=== PATIENT | male | born 1960 | race Caucasian/White ===

== ENCOUNTER 2018-12-07 05:24 | Emergency (ER) | payer BC ==
--- OUTSIDE RECORDS SUMMARY | 2018-12-07 06:02 | XMS REPORT | Continuity of Care Document ---
:1960 External Reference #:[id number] Author Name Marc Ortega MD Address [address] [place] [address] Care Team Providers Name Role Phone Marc Ball MD - Family Care Team Information Communication Center Coordinator [phone] Medicine Problems Description No Information Available Social History Type Date Description Comments Sex Unknown Tobacco Use Start: Unknown Nonsmoker ETOH Use Occasional Tobacco Use Start: Unknown Nonsmoker Smoking Status Reviewed: 11/18/18 Nonsmoker Allergies, Adverse Reactions, Alerts Active Allergies Reaction Severity Comments Date NKDA 10/23/2015 Lactose loose stool 08/30/2018 Medications Active Medications SIG Qnty Indications Ordering Provider Date Temazepam 1 -2 at bedtime 60caps Marc Christie 09/13/2018 15mg Capsules as needed for MD Shannon sleep Claritin use 1 by mouth Unknown 10mg Capsules q.d Risperidone 1 tab every day 30tabs Marc Christie 1mg Tablets at bedtime MD Shannon Immunizations CPT Code Status Date Vaccine Lot # [id number] Given 05/31/2016 Tdap Tetanus, W Pertussis [id number] Vital Signs Date Vital Result Comment 11/18/2018 12:49pm BP Systolic 110 mmHg BP Diastolic 80 mmHg Heart Rate 68 /min Body Temperature 97.0 F Respiratory Rate 16 /min Height 72 inches 6'0" Weight 208.00 lb BMI (Body Mass Index) 28.2 kg/m2 09/13/2018 4:43pm BP Systolic 100 mmHg BP Diastolic 72 mmHg Heart Rate 72 /min Body Temperature 97.9 F Respiratory Rate 12 /min Height 72.6 inches 6'0.60" Weight 210.00 lb BMI (Body Mass Index) 28.0 kg/m2 Results Description No Information Available Procedures Date Code Description Status 01/26/2017 [id number] Colonoscopy Completed Medical Devices Description No Information Available Encounters Type Date Location Provider Dx Diagnosis Office Visit 09/13/2018 [facility] Office Marc Christie F31.0 Bipolar disorder, 4:30p MD Shannon current episode hypomanic Office Visit 08/30/2018 [facility] Office Marc Pratik F31.0 Bipolar disorder, 3:00p MD Shannon current episode hypomanic Assessments Date Code Description Provider 11/18/2018 Z00.00 Encounter for general adult medical Marc Ortega MD examination without abnormal findings 11/18/2018 F31.0 Bipolar disorder, current episode Marc Ortega MD hypomanic 11/18/2018 G47.00 Insomnia, unspecified Marc Ortega MD 09/13/2018 F31.0 Bipolar disorder, current episode Marc Ortega MD hypomanic 08/30/2018 F31.0 Bipolar disorder, current episode Marc Ortega MD hypomanic Plan of Treatment Future Appointment(s):11/20/2018 9:30 am - Marc Ball M.D. at [facility]11/18/2018 - Marc Ortega MDZ00.00 Encounter for general adult medical examination without abnormal findingsNew Labs:CBC Electronic-ALL [facility], Ordered: 11/18/18Comp Metabolic-ALL [facility], Ordered: 11/18/18Lipid Panel-[facility], Ordered: 11/18/18TS ([facility]/ [facility]), Ordered: 11/18/18F31.0 Bipolar disorder, current episode [id number] Insomnia, unspecifiedAllComments:Medication Management Patient Understands medications he's taking? Yes No Are there Barriersto Adherence? Yes No Has the patient been asked about herbal supplements and therapies, and OTC meds? Yes No Functional Status Description No Information Available Mental Status Description No Information Available Referrals Description No Information Available
[2018-12-07] MEDS ORDERED: LORazepam TAB(*) 1 MG PO ONE (06:34)
[2018-12-07 06:48] LABS: ABS Eosinophils 0.1 10^3/ul (0-0.6); ABS Lymphocytes 1.8 10^3/ul (1.0-4.8); ABS Monocytes 0.6 10^3/ul (0-0.8); ABS Neutrophils 4.1 10^3/ul (1.5-7.7); Eosinophil % 1.4 %; Hematocrit 42 % (42-52); Hemoglobin 14.9 g/dL (14.0-18.0); Lymphocyte % 26.8 %; Mean Corpuscular HGB Conc 35 g/dL (31-36); Mean Corpuscular Hemoglobin 31 pg (27-31); Mean Corpuscular Volume 87 fL (80-94); Mean Platelet Volume 8.2 fL (7.4-10.4); Platelet Count 270 10^3/uL (150-450); Red Blood Count 4.81 10^6 /uL (4.18-5.48); Red Cell Distribution Width 13 % (10-15); White Blood Count 6.6 10^3/uL (3.5-10.8)
[2018-12-07 06:48] LABS: Urine Appearance Clear; Urine Bacteria Absent (Absent); Urine Bilirubin Negative (Negative); Urine Blood 1+ (Negative); Urine Color Yellow; Urine Glucose Negative (Negative); Urine Ketones Negative (Negative); Urine Nitrite Negative (Negative); Urine Protein Negative (Negative); Urine Red Blood Cell Trace(0-2/hpf) (Absent); Urine Squamous Epithelial Cell Present (Absent); Urine Urobilinogen Negative (Negative); Urine White Blood Cell Trace(0-5/hpf) (Absent)
[2018-12-07 07:00] LABS: ALT 39 U/L (7-52); AST 26 U/L (13-39); Albumin 4.4 g/dL (3.2-5.2); Albumin/Globulin Ratio 2.2 (1-3); Alkaline Phosphatase 57 U/L (34-104); Anion Gap 6 mmol/L (2-11); BUN/Creatinine Ratio 8.9 (8-20); Blood Urea Nitrogen 8 mg/dL (6-24); CO2 Carbon Dioxide 28 mmol/L (22-32); Calcium 9.4 mg/dL (8.6-10.3); Chloride 105 mmol/L (101-111); EGFR African American 104.9 (>60); EGFR Non-African American 86.7 (>60); Glucose 107 mg/dL (70-100); Potassium 3.8 mmol/L (3.5-5.0); Sodium 139 mmol/L (135-145); Total Protein 6.4 g/dL (6.4-8.9)
[2018-12-07 07:06] LABS: Urine Benzodiazepine Screen None Detected (None Detect); Urine Opiates Screen None Detected (None Detect)
[2018-12-07 07:17] LABS: Acetaminophen < 15 mcg/mL; Alcohol < 10 mg/dL (<10); Salicylate < 2.50 mg/dL (<30)
[2018-12-07 07:29] LABS: TSH (Thyroid Stimulating Horm) 0.66 mcIU/mL (0.34-5.60)
--- NOTE | 2018-12-07 07:41 | ED ---
Psychiatric Complaint - HPI Summary HPI Summary: This patient is a 58-year-old male with a recent diagnosis history of bipolar disorder presenting to the ED with inability to sleep/insomnia times several months. He states he obtains approximately 2 hours per night. He is currently on risperidone and temazepam through his PCP. He was seen by psychiatrist in August who diagnosed him with bipolar disorder, however at bedside states she has been unable to get him in to see another psychiatrist. Since that time he has been worsening. He denies any HI. He denies any hallucinations. He states he has had some suicidal thoughts d/t the inability to sleep. He endorses taking his medications regularly. He denies any drug or alcohol use. - History Of Current Complaint Chief Complaint: EDMentalHealth Time Seen by Provider: 12/07/18 05:37 Hx Obtained From: Patient Onset/Duration: Sudden Onset Timing: Constant Severity Initially: Severe Severity Currently: Severe Character: Manic Aggravating Factor(s): Nothing Alleviating Factor(s): Nothing Associated Signs And Symptoms: Positive: Sleep Disturbance Related History: Positive For: Prior Psychiatric Issues - bipolar Has Suicidal: Reports: Thoughts - no plan in place - Risk Factor(s) Completed Suicide Risk Factors: Male, White Citizen Of [place] - Allergies/Home Medications Allergies/Adverse Reactions: Allergies Allergy/AdvReac Type Severity Reaction Status Date / Time lactose Allergy Diarrhea Verified 12/07/18 05:39 Home Medications: Home Medications Temazepam 30 mg PO BEDTIME 12/07/18 [History Confirmed 12/07/18] risperiDONE [Risperidone] 1 mg PO BEDTIME 12/07/18 [History Confirmed 12/07/18] PMH/Surg Hx/FS Hx/Imm Hx Previously Healthy: Yes - Immunization History Hx Pertussis Vaccination: No Immunizations Up to Date: Yes Infectious Disease History: No Infectious Disease History: Denies: Traveled Outside the [place] in Last 30 Days - Social History Occupation: Employed Full-time Lives: With Family Alcohol Use: None Hx Substance Use: No Substance Use Type: Reports: None Hx Tobacco Use: No Smoking Status (MU): Never Smoked Tobacco Review of Systems Positive: Fatigue. Negative: Fever, Chills, Skin Diaphoresis Negative: Photophobia, Blurred Vision, Diplopia, Drainage Negative: Palpitations, Chest Pain Negative: Shortness Of Breath, Cough Genitourinary: Negative Positive: no symptoms reported, see HPI Negative: Arthralgia, Myalgia Skin: Negative Positive: Anxious, Depressed, Other - insomnia All Other Systems Reviewed And Are Negative: Yes Physical Exam Triage Information Reviewed: Yes Vital Signs On Initial Exam: Initial Vitals Temp Pulse Resp BP Pulse Ox 98.2 F 88 16 139/92 95 12/07/18 05:26 12/07/18 05:26 12/07/18 05:26 12/07/18 05:26 12/07/18 05:26 Vital Signs Reviewed: Yes Appearance: Positive: Well-Appearing, Well-Nourished Skin: Positive: Warm, Skin Color Reflects Adequate Perfusion Head/Face: Positive: Normal Head/Face Inspection Eyes: Positive: Normal, GEOVANI, Conjunctiva Clear Neck: Positive: Supple, No Lymphadenopathy Respiratory/Lung Sounds: Positive: Clear to Auscultation, Breath Sounds Present Cardiovascular: Positive: Pulses are Symmetrical in both Upper and Lower Extremities Musculoskeletal: Positive: Strength/ROM Intact Neurological: Positive: Speech Normal Psychiatric: Positive: Other - pt appears fatigued Procedures - Sedation Patient Received Moderate/Deep Sedation with Procedure: No Diagnostics - Vital Signs Vital Signs Temp Pulse Resp BP Pulse Ox 12/07/18 06:48 18 12/07/18 05:26 98.2 F 88 16 139/92 95 - Laboratory Lab Results: Lab Results 12/07/18 12/07/18 12/07/18 Range/Units 05:45 05:45 06:36 WBC 6.6 (3.5-10.8) 10^3/uL RBC 4.81 (4.18-5.48) 10^6 /uL Hgb 14.9 (14.0-18.0) g/dL Hct 42 (42-52) % MCV 87 (80-94) fL MCH 31 (27-31) pg MCHC 35 (31-36) g/dL RDW 13 (10-15) % Plt Count 270 (150-450) 10^3/uL MPV 8.2 (7.4-10.4) fL Neut % (Auto) 62.5 % Lymph % (Auto) 26.8 % [place] % (Auto) 8.6 % Eos % (Auto) 1.4 % Baso % (Auto) 0.7 % Absolute Neuts (auto) 4.1 (1.5-7.7) 10^3/ul Absolute Lymphs (auto) 1.8 (1.0-4.8) 10^3/ul Absolute Monos (auto) 0.6 (0-0.8) 10^3/ul Absolute Eos (auto) 0.1 (0-0.6) 10^3/ul Absolute Basos (auto) 0.0 (0-0.2) 10^3/ul Absolute Nucleated RBC 0.0 10^3/ul Nucleated RBC % 0.0 Sodium (135-145) mmol/L Potassium (3.5-5.0) mmol/L Chloride (101-111) mmol/L Carbon Dioxide (22-32) mmol/L Anion Gap (2-11) mmol/L BUN (6-24) mg/dL Creatinine (0.67-1.17) mg/dL Est GFR ( Amer) (>60) Est GFR (Non-Af Amer) (>60) BUN/Creatinine Ratio (8-20) Glucose (70-100) mg/dL Calcium (8.6-10.3) mg/dL Total Bilirubin (0.2-1.0) mg/dL AST (13-39) U/L ALT (7-52) U/L Alkaline Phosphatase (34-104) U/L Total Protein (6.4-8.9) g/dL Albumin (3.2-5.2) g/dL Globulin (2-4) g/dL Albumin/Globulin Ratio (1-3) TSH (0.34-5.60) mcIU/mL Urine Color Yellow Urine Appearance Clear Urine pH 7.0 (5-9) Ur Specific [place] 1.010 (1.010-1.030) Urine Protein Negative (Negative) Urine Ketones Negative (Negative) Urine Blood 1+ A (Negative) Urine Nitrate Negative (Negative) Urine Bilirubin Negative (Negative) Urine Urobilinogen Negative (Negative) Ur Leukocyte Esterase Negative (Negative) Urine WBC (Auto) Trace(0-5/hpf) (Absent) Urine RBC (Auto) Trace(0-2/hpf) (Absent) Ur Squamous Epith Cells Present A (Absent) Amorphous Crystals Present A (Absent) Urine Bacteria Absent (Absent) Urine Glucose Negative (Negative) Salicylates (<30) mg/dL Urine Opiates Screen None detected (None Detect) Acetaminophen mcg/mL Ur Barbiturates Screen None detected (None Detect) Ur Phencyclidine Scrn None detected (None Detect) Ur Amphetamines Screen None detected (None Detect) U Benzodiazepines Scrn None detected (None Detect) Urine Cocaine Screen None detected (None Detect) U Cannabinoids Screen None detected (None Detect) Serum Alcohol (<10) mg/dL 12/07/18 Range/Units 06:36 WBC (3.5-10.8) 10^3/uL RBC (4.18-5.48) 10^6 /uL Hgb (14.0-18.0) g/dL Hct (42-52) % MCV (80-94) fL MCH (27-31) pg MCHC (31-36) g/dL RDW (10-15) % Plt Count (150-450) 10^3/uL MPV (7.4-10.4) fL Neut % (Auto) % Lymph % (Auto) % [place] % (Auto) % Eos % (Auto) % Baso % (Auto) % Absolute Neuts (auto) (1.5-7.7) 10^3/ul Absolute Lymphs (auto) (1.0-4.8) 10^3/ul Absolute Monos (auto) (0-0.8) 10^3/ul Absolute Eos (auto) (0-0.6) 10^3/ul Absolute Basos (auto) (0-0.2) 10^3/ul Absolute Nucleated RBC 10^3/ul Nucleated RBC % Sodium 139 (135-145) mmol/L Potassium 3.8 (3.5-5.0) mmol/L Chloride 105 (101-111) mmol/L Carbon Dioxide 28 (22-32) mmol/L Anion Gap 6 (2-11) mmol/L BUN 8 (6-24) mg/dL Creatinine 0.90 (0.67-1.17) mg/dL Est GFR ( Amer) 104.9 (>60) Est GFR (Non-Af Amer) 86.7 (>60) BUN/Creatinine Ratio 8.9 (8-20) Glucose 107 H (70-100) mg/dL Calcium 9.4 (8.6-10.3) mg/dL Total Bilirubin 1.40 H (0.2-1.0) mg/dL AST 26 (13-39) U/L ALT 39 (7-52) U/L Alkaline Phosphatase 57 (34-104) U/L Total Protein 6.4 (6.4-8.9) g/dL Albumin 4.4 (3.2-5.2) g/dL Globulin 2.0 (2-4) g/dL Albumin/Globulin Ratio 2.2 (1-3) TSH 0.66 (0.34-5.60) mcIU/mL Urine Color Urine Appearance Urine pH (5-9) Ur Specific [place] (1.010-1.030) Urine Protein (Negative) Urine Ketones (Negative) Urine Blood (Negative) Urine Nitrate (Negative) Urine Bilirubin (Negative) Urine Urobilinogen (Negative) Ur Leukocyte Esterase (Negative) Urine WBC (Auto) (Absent) Urine RBC (Auto) (Absent) Ur Squamous Epith Cells (Absent) Amorphous Crystals (Absent) Urine Bacteria (Absent) Urine Glucose (Negative) Salicylates < 2.50 (<30) mg/dL Urine Opiates Screen (None Detect) Acetaminophen < 15 mcg/mL Ur Barbiturates Screen (None Detect) Ur Phencyclidine Scrn (None Detect) Ur Amphetamines Screen (None Detect) U Benzodiazepines Scrn (None Detect) Urine Cocaine Screen (None Detect) U Cannabinoids Screen (None Detect) Serum Alcohol < 10 (<10) mg/dL Result Diagrams: 12/07/18 06:36 12/07/18 06:36 Lab Statement: Any lab studies that have been ordered have been reviewed, and results considered in the medical decision making process. Course/Dx - Course Course Of Treatment: Patient is evaluated for insomnia over the past 4-5 months. He states symptoms of been worsening. He obtains approximately 2 hours of sleep per night. He denies any drug or alcohol use. He does endorse thoughts of suicide, however he denies any plan at this time. He denies any HI. He denies any physical pain, however he states he is very tired/yet very awake. He is cleared for MHE at 7am. After mental health evaluation, patient was recommended to follow-up with [facility]. He will be scheduled for an intake within the next few days. Patient states the Ativan helped immensely and patient is given 0.5 mg 3-4 times per day as needed for his symptoms. He will continue to take all of his other medications as prescribed. He is dx with unspecified insomnia. Dr. Arreaga. Denies any SI/HI. - Differential Dx/Clinical Impression Differential Diagnosis/HQI/PQRI: Positive: Anxiety, Bipolar Disorder, Depression , Suicidal Ideation Provider Diagnosis: Insomnia Discharge ED - Sign-Out/Discharge Documenting (check all that apply): Patient Departure Patient Received Moderate/Deep Sedation with Procedure: No - Discharge Plan Condition: Stable Disposition: HOME Prescriptions: LORazepam TAB(*) [Ativan 0.5 MG TAB (*)] 0.5 mg PO Q6H PRN #12 tab MDD 4 PRN Reason: Anxiety Referrals: No Primary Care Phys,NOPCP [Primary Care Provider] - - Billing Disposition and Condition Condition: STABLE Disposition: Home - Attestation Statements Provider Attestation: I was available for consultation for this patient. I did not evaluate the patient or participate in any medical decision making or disposition decisions unless I am specifically named in the chart as having consulted on the patient. If I have consulted on the patient, please see my own ED note on the patient encounter. Ricky Christianson MD
[2018-12-07 09:25] VITALS: BP 103/63
== END 2018-12-07 09:30 | disposition home or self-care (01) ==
LOC: ED 05:24
DX: G47.00 Insomnia, unspecified (principal); R53.83 Other fatigue; F31.9 Bipolar disorder, unspecified; Z91.011 Allergy to milk products
CPT/HCPCS: 36415; 80053; 80307; 80320; 80329; 81003; 81015; 84443; 85025; 87086; 99284; A9270-GY; G0480